=== PATIENT | female | born 1955 | race Caucasian/White ===

== ENCOUNTER 2021-04-01 13:08 | Outpatient (CLI) | payer MEDICARE, OTHER ==
--- NOTE | 2021-04-01 17:13 | DEXA Report ---
PROCEDURE: Dexa Spine and/or Hip INDICATIONS: OSTEOPOROSIS TECHNIQUE: Dual energy x-ray absorptiometry (DXA) was performed on a [employer] System. Regions measur ed are the AP Spine, femoral neck, and if needed forearm. COMPARISON: None. FINDINGS: Lumbar Spine: Omitted due to anatomy Left Femoral Neck: Bone Mineral Density 0.918 g/cm/cm, T score -0.7, normal Left forearm: Bone Mineral Density 0.373 g/cm/cm, T score -2.0, osteopenia (T score greater or equal to -1.0: NORMAL) (T score from -1.1 to -2.4: OSTEOPENIA) (T score less than or equal to -2.5 to: OSTEOPOROSIS) Impression: Osteopenia Patients with diagnosis of osteoporosis or osteopenia should have regular bone mineral density assess ment. For those eligible for Medicare, routine testing is allowed once every 2 years. Testing frequ ency can be increased for patients who have rapidly progressing disease or for those who are receivin g medical therapy to restore bone mass. Reviewed by: Harshil Ng MD on 04/01/2021 5:12 PM PDT Approved by: Harshil Ng MD on 04/01/2021 5:12 PM PDT Station ID: [id number]
== END 2021-04-01 13:09 | disposition home or self-care (01) ==
LOC: DI 13:08
PROVIDERS: ATTEND Internal Medicine
DX: Z00.00 Encounter for general adult medical examination without abnormal findings (principal); M85.88 Other specified disorders of bone density and structure, other site

== ENCOUNTER 2021-06-24 18:14 | Outpatient (CLI) | payer MEDICARE, OTHER ==
--- NOTE | 2021-06-25 08:15 | XRAY Report ---
PROCEDURE: Ribs w/PA Chest RT INDICATIONS: CONTUSION OF R FRONT WALL OF THORAX TECHNIQUE: 3 views of the right ribs were acquired, along with a single view chest. COMPARISON: None FINDINGS: Surgical changes and devices: Surgical hardware of lower thoracic spinal fusion. No evidence for acut e hardware complication. Bones and chest wall: Age-indeterminate posterior lateral right eighth rib fracture. No acute fractur es noted over the site of patient's pain marked by a skin BB seen in the lower, lateral aspect of the right chest. Levoscoliosis of the lumbar spine with associated spondylitic changes. No suspicious [place] lesions. Overlying soft tissues appear unremarkable. Lungs and pleura: No pleural effusions or pneumothorax. Lungs appear clear. Mediastinum: Mediastinal contours appear normal. Heart size is normal. IMPRESSION: 1. Age-indeterminate posterior lateral right eighth rib fracture. No acute rib fractures noted over t he area of pain in the lower right chest as indicated by the skin BB marker. 2. No acute cardiopulmonary abnormalities. 3. Levoscoliosis of the lumbar spine with associated spondylosis. 4. Status post spinal fusion of the thoracolumbar spine involving T11-L1. Reviewed by: Curtis Rodriguez MD on 06/25/2021 8:13 AM PDT Approved by: Curtis Rodriguez MD on 06/25/2021 8:13 AM PDT Station ID: [id number]
== END 2021-06-24 23:59 ==
LOC: DI.N 18:14
PROVIDERS: ATTEND Physician Assistant Medical
DX: S22.31XA Fracture of one rib, right side, initial encounter for closed fracture (principal); M47.816 Spondylosis without myelopathy or radiculopathy, lumbar region; Z98.1 Arthrodesis status

== ENCOUNTER 2021-12-17 10:58 | Day surgery (SDC) | payer MEDICARE, OTHER ==
[2021-12-17] MEDS ORDERED: LACTATED RINGERS 1,000 ML IV ONE ×2 (11:01→12:32)
[2021-12-17] MEDS ORDERED: PROPOFOL 500 MG/50 ML 500 MG/50 ML VIAL ONE (11:16)
--- NOTE | 2021-12-17 11:34 | ANESTHESIA ---
Pre-Anesthesia VS, & Labs - Diagnosis ulerative colitis - Procedure colonoscopy Vital Signs: Temp Pulse Resp BP Pulse Ox 37.3 C 90 18 145/82 H 100 12/17/21 11:01 12/17/21 11:01 12/17/21 11:01 12/17/21 11:01 12/17/21 11:01 Height: 5 ft Weight (kg): 56.7 kg Body Mass Index: 24.4 BMI Classification: Healthy weight - NPO Other (prep finished 8:30) - Is Patient ?: No Home Medications and Allergies Home Medications: Ambulatory Orders ARIPiprazole [Aripiprazole] 10 mg PO DAILY 12/09/21 Aspirin [Aspirin EC] 81 mg PO DAILY 12/09/21 Atorvastatin Calcium 40 mg PO DAILY 12/09/21 Calcium Carbonate/Vitamin D3 [Calcium 500 mg-Vit D3 600 Unit] 1 each PO DAILY 12/09/21 Cyclobenzaprine [Flexeril] 10 mg PO TID PRN 12/09/21 Loratadine [Claritin] 10 mg PO DAILY 12/09/21 Losartan Potassium [Cozaar] 100 mg PO DAILY 12/09/21 Sertraline [Zoloft] 200 mg PO DAILY 12/09/21 Tolterodine Tartrate [Detrol] 2 mg PO DAILY 12/09/21 Valacyclovir HCl [Valtrex] 500 mg PO DAILY 12/09/21 hydroCHLOROthiazide [Hydrodiuril] 25 mg PO DAILY 12/09/21 sulfaSALAzine [Azulfidine] 1,000 mg PO QID 12/09/21 ARIPiprazole [Aripiprazole] 10 mg PO DAILY 12/09/21 Aspirin [Aspirin EC] 81 mg PO DAILY 12/09/21 Atorvastatin Calcium 40 mg PO DAILY 12/09/21 Calcium Carbonate/Vitamin D3 [Calcium 500 mg-Vit D3 600 Unit] 1 each PO DAILY 12/09/21 Cyclobenzaprine [Flexeril] 10 mg PO TID PRN 12/09/21 Loratadine [Claritin] 10 mg PO DAILY 12/09/21 Losartan Potassium [Cozaar] 100 mg PO DAILY 12/09/21 Sertraline [Zoloft] 200 mg PO DAILY 12/09/21 Tolterodine Tartrate [Detrol] 2 mg PO DAILY 12/09/21 Valacyclovir HCl [Valtrex] 500 mg PO DAILY 12/09/21 hydroCHLOROthiazide [Hydrodiuril] 25 mg PO DAILY 12/09/21 sulfaSALAzine [Azulfidine] 1,000 mg PO QID 12/09/21 Allergies/Adverse Reactions: Allergies Allergy/AdvReac Type Severity Reaction Status Date / Time No Known Drug Allergies Allergy Verified 12/09/21 15:48 Anes History & Medical History - Anesthetic History Anesthesia Complications: reports: No previous complications - Medical History Cardiovascular: reports: Hypertension, High cholesterol Pulmonary: reports: Sleep apnea (no cpap) Gastrointestinal: reports: Ulcerative colitis Urinary: reports: Other Musculoskeletal: reports: Osteoarthritis, Chronic back pain Endocrine/Autoimmune: reports: None Skin: reports: Rosacea Smoking Status: Never smoker History of Cancer?: No - Surgical History General: reports: Colonoscopy Eyes Ears Nose Throat (EENT): reports: Tonsil/Adenoidectomy Orthopedic: reports: Hip replacement, Spine surgery, Other Exam General: Alert, Oriented x3 Dental: WNL Mouth Opening: Greater than 4 Fingerbreadths Neck Mobility: Normal Mallampati classification: III Respiratory: Lungs clear Cardiovascular: Regular rate Plan Anesthesia Type: Total IV Consent for Procedure(s) Verified and Reviewed: Yes Code Status: Attempt Resuscitation ASA classification: 2-Mild systemic disease Is this case an emergency?: No
[2021-12-17] MEDS ORDERED: LIDOCAINE 2%-EPI 1:100000 20 ML MDV SUBQ ONE (12:10)
[2021-12-17] MEDS ORDERED: BUPIVACAINE 0.25% PF 10 ML VIAL SUBQ ONE (12:10)
[2021-12-17] MEDS ORDERED: BUPIVACAINE 0.25% PF 10 ML VIAL ONE (12:11)
[2021-12-17] MEDS ORDERED: LIDOCAINE 2%-EPI 1:100000 20 ML MDV ONE (12:11)
--- NOTE | 2021-12-17 12:50 | OPERATIVE REPORT ---
Operative Report - General Procedure Date: 12/17/21 Planned Procedure: Incision and drainage of perianal abscess Pre-Op Diagnosis: Perianal abscess and ulcerative colitis Procedure Performed: Incision and drainage of perianal abscess Post Op Diagnosis: Perianal abscess and ulcerative colitis - Procedure Note Primary Surgeon: Conor Anesthesia Provider: Chika Pathology: Perianal skin Estimated Blood Loss (mL): 1 Findings: 2-1/2 cm subcutaneous cavity filled with purulent fluid. Complications: None apparent - Other Other Information/Narrative: This procedure was done following colonoscopy. Patient was already sedated and in left lateral decubitus position and a timeout had already been completed. The area of the abscess was prepped in the usual surgical fashion. It was infiltrated with 10 mL of local anesthetic. The central necrotic region was then opened using a 15 blade scalpel and a small piece of skin removed to allow complete and thorough drainage. The cavity was probed without any definite connection with the anal canal. The wound was checked for hemostasis and dressed with dry dressings. The patient tolerated procedure well and was taken to the postanesthesia care unit in good condition.
[2021-12-17 13:01] VITALS: BP 132/67
--- NOTE | 2021-12-17 13:16 | ANESTHESIA POST OP EVALUATION ---
Anesthesia Post Eval - Post Anesthesia Eval Vitals: Last Vital Signs Temp 37.2 C 12/17/21 12:55 Pulse 97 12/17/21 12:55 Resp 18 12/17/21 12:55 BP 132/67 H 12/17/21 12:55 Pulse Ox 99 12/17/21 12:55 CV Function Including HR & BP: Stable Pain Control: Satisfactory Nausea & Vomiting: Negative Mental Status: Baseline Respiratory Status: Airway Patent Hydration Status: Satisfactory Anesthesia Complications: None
== END 2021-12-17 10:59 | disposition home or self-care (01) ==
LOC: SDS 10:58
PROVIDERS: ATTEND Surgery
PROC: 0D9Q7ZZ Drainage of Anus, Via Natural or Artificial Opening (ICD-10-PCS; 2021-12-17)
PROC: 0DBP8ZX Excision of Rectum, Via Natural or Artificial Opening Endoscopic, Diagnostic (ICD-10-PCS; principal; 2021-12-17 12:00)
PROC: 0DBE8ZX Excision of Large Intestine, Via Natural or Artificial Opening Endoscopic, Diagnostic (ICD-10-PCS; 2021-12-17 12:00)
DX: K51.911 Ulcerative colitis, unspecified with rectal bleeding (principal); K61.0 Anal abscess; K64.4 Residual hemorrhoidal skin tags; K64.8 Other hemorrhoids; G47.30 Sleep apnea, unspecified
CPT/HCPCS: 45380; 46050; J7120

== ENCOUNTER → 2022-03-02 | Outpatient (CLI) | payer MEDICARE, OTHER | END | disposition short-term general hospital (02) | LOC: EMS 14:39 | DX: Z04.1 Encounter for examination and observation following transport accident (principal); M54.2 Cervicalgia; M54.6 Pain in thoracic spine; R20.2 Paresthesia of skin | CPT/HCPCS: A0425; A0429 ==

== ENCOUNTER 2022-11-24 13:33 | Outpatient (CLI) | payer MEDICARE, OTHER ==
--- NOTE | 2022-11-24 19:15 | SLEEP CARE CONSULTATION ---
Information from patient questionnaire entered by Alyssa Ashford. I have reviewed and concur with the information entered by Alyssa Ashford. This document represents the service I personally performed and the decisions made by me, Nuris Ryan MD, [facility]. History of Present Illness Service Date and Time: 11/24/2022 1333 Reason for Visit: New patient Chief Complaint: reports: Insomnia, Unrefreshed sleep, Snoring, Observed pauses in breathing, Fatigue, Frequent awakenings at night Date of Onset: SINCE I CAN REMEMBER Usual bedtime: [id number] Time it takes to fall asleep: 1-2 Snores at night: Yes Observed to quit breathing while asleep: Yes Number of times waking at night: 3-4 Reasons for waking at night: reports: Other (UNKNOWN) Recalls having dreams: Yes (NOON) Feels refreshed in the morning: No Morning headache: No Sleepy or fatigued during the day: Yes Ever fallen asleep while driving: Yes Takes day naps: No Dreams during day naps: No Prior sleep studies: Yes ([facility] SLE[facility] 15 YRS AGO) Additional HPI information: I have the pleasure of seeing Ms. Amaro today regarding the possibility of her having obstructive sleep apnea. As you know, she is a 67-year-old lady who complains of frequent awakenings during the night and persistent fatigue. She was diagnosed with severe obstructive sleep apnea-hypopnea in 2007 but mild in 2008 when she only slept on her side. She stopped using her CPAP not long afterward because she found a spider in the air hose. The patient tells me that she normally goes to bed around 2 3 am, and it takes her approximately 1 2 hours to fall asleep. She has been told that she snores loudly and irregularly at night. She has also been observed to stop breathing in her sleep. She can recall waking up on the average of 3 - 6 times during the night. In the morning she usually gets up out of the bed around noon. not feeling refreshed nor rested. During the day she complains of feeling sleepy and fatigued. Her score on Friendship Sleepiness Scale is 15 out of 24. - Parasomnia Symptoms Ever been unable to move upon waking from sleep: No Walks in sleep: No Talks in sleep: No Ever acted out dreams in sleep: No Ever felt weak in the knees when startled or emotional: No Bothered by creepy, crawly, restless sensations in legs: No Problems with memory or concentration: Yes Subjective Initial Friendship Sleepiness Scale score: 15 (11/24/22) Past Medical History Past Medical History: reports: Hypertension, Arthritis, Other (BACK SHOULDER PAIN) Social History The patient's occupation is a [employer]. Patient is Single and lives in . Have you smoked in the past 12 months: No Alcohol use: No Caffeine use: Yes Caffeine amount and frequency: 3 CANS DIET SODA Family History Family history of sleep disordered breathing: Yes Family Hx Sleep Apnea: Mother: Snoring Allergies and Home Medications Known drug allergies: No Drug allergies reviewed: Yes Home medication list reviewed: Yes Allergy and home medication list: Allergies No Known Drug Allergies Allergy (Verified 12/09/21 15:48) Review of Systems Weight gain over past 5 years: 30 Weight loss over past 5 years: 50 Cardiovascular: reports: high blood pressure Respiratory: denies: shortness of breath, wheeze, sputum production, chronic cough, other Gastrointestinal: reports: diarrhea, other (UCETIVE CLITIS) Urinary: reports: frequency, urgency Neurological: denies: headaches, seizure, head trauma, disorientation, speech dysfunction, gait or balance problems, fainting or unconsciousness, other Psychiatric: reports: depression Ear/Nose/Throat: reports: sinus problems, dry mouth/throat, tonsillectomy, wisdom teeth removed Endocrine: denies: thyroid disease, history of goiter, sluggishness, too hot or cold, excessive thirst, increased appetite, increased urination, unexplained wea kness, other Musculoskeletal: reports: joint pain, back pain Immunologic: reports: sneezing Physical Exam Vital signs obtained and entered by: ALYSSA Pulido MA Blood Pressure: 142/80 (LEFT ARM) Cuff size: regular Heart Rate: 76 O2 Saturation: 97 Height: 5 ft Weight: 164 lb 12.8 oz Body Mass Index: 32.1 BMI Classification: Obese Neck circumference: 13.75 HEENT: No craniofacial malformation Nostrils: patent to airflow Turbinates: normal Septum: midline Mouth and throat: narrow oropharynx Soft palate: long Hard palate: normal Uvula: normal Uvula visualization: 50% Mallampati Class II Tongue: normal in size Tonsils: small Chin and jaw: normal size and position Neck: normal w/o lymphadenopathy or thyromegaly Heart: regular rate and rhythm Lungs: clear bilaterally Extremities: no edema or clubbing Neurologic: intact Impression and Plan IMPRESSION: 1. Obstructive Sleep Apnea-Hypopnea Syndrome, as previously diagnosed. She quit using her CPAP a decade ago. She appears to be symptomatic for loud snore, frequent awakenings, unrefreshed sleep, and persistent fatigue, Narrow oropharynx and obesity are common predisposing factors for obstructive sleep apnea-hypopnea syndrome. I recommend proceeding to another polysomnography to confirm the diagnosis and to reassess severity. I informed the patient of what the sleep studies involve and after some discussion, she agreed to proceed. Plan: 1. Schedule polysomnography and return in 1 to 2 weeks after the study to discuss the results and initiate therapy as necessary. 2. Avoid long distance driving or when feeling sleepy. 3. Avoid alcohol, sedative and muscle relaxant around bedtime. 4. Attempt to lose weight. Plan: In-lab PSG Visit Type: In Office Time Spent with Patient (minutes): 15 Provider Statement: I spent 100% of the Face to Face Visit with the patient with greater than 50% spent counseling the patient and coordination of care.
[2022-11-24 19:16] VITALS: BP 142/80
== END 2022-11-24 13:34 | disposition home or self-care (01) ==
LOC: SC 13:33
PROVIDERS: ATTEND Internal Medicine Pulmonary Disease
DX: G47.33 Obstructive sleep apnea (adult) (pediatric) (principal); E66.9 Obesity, unspecified; Z68.32 Body mass index [BMI] 32.0-32.9, adult
CPT/HCPCS: 99202; G0463; 99212

== ENCOUNTER 2022-12-04 18:58 | Emergency (ER) | payer MEDICARE, OTHER ==
--- NOTE | 2022-12-04 19:37 | ED Physician Documentation ---
PD HPI DYSPNEA - Stated complaint Stated Complaint: WHEEZING,SOA - Chief complaint Chief Complaint: Resp - History obtained from History obtained from: Patient - Additional information Additional information: 67-year-old female with past medical history of hypertension and hyperlipidemia presents with about a week of cough, nasal congestion and wheezing. The patient has been seen in the clinic and has been given steroids, Tessalon Perles, Mucinex, And albuterol with only intermittent relief in her symptoms. She continues to have a frequent cough and frequent wheezing. She states she cannot take a deep breath because it triggers coughing. She states she cannot sleep at night because as soon as she lies flat she starts to cough. She has not noted any lower extremity edema however and denies any acute weight gain though has gained weight over the course of the last year or so due to diet changes. She has not had any chest pain, no fever or chills, no GI or symptoms. She has no history of lung disease to her knowledge, no history of COPD or asthma or tobacco use, No history of congestive heart failure. She does have a history of obstructive sleep apnea and had a recent sleep study. No known sick contacts. Review of Systems Constitutional: reports: Reviewed and negative Eyes: reports: Reviewed and negative Ears: reports: Reviewed and negative Nose: reports: Rhinorrhea / runny nose, Congestion. denies: Epistaxis, Sinus pressure / pain, Foreign Body Throat: reports: Reviewed and negative Cardiac: reports: Reviewed and negative Respiratory: reports: Dyspnea, Cough, Wheezing. denies: Hemoptysis GI: reports: Reviewed and negative : reports: Reviewed and negative Skin: reports: Reviewed and negative Musculoskeletal: reports: Reviewed and negative Neurologic: reports: Reviewed and negative Psychiatric: reports: Reviewed and negative Endocrine: reports: Reviewed and negative PD PAST MEDICAL HISTORY - Past Medical History Past Medical History: Yes Cardiovascular: Hypertension, High cholesterol Respiratory: Sleep apnea Endocrine/Autoimmune: None GI: Ulcerative colitis : Other HEENT: Chronic vision loss Psych: Depression Musculoskeletal: Osteoarthritis, Chronic back pain Derm: Rosacea - Past Surgical History Past Surgical History: Yes General: Colonoscopy Ortho: Hip replacement, Spine surgery, Other HEENT: Tonsil/Adenoidectomy - Present Medications Home Medications: Ambulatory Orders Medication Instructions Recorded Confirmed ARIPiprazole [Aripiprazole] 10 mg PO DAILY 12/09/21 11/24/22 Aspirin [Aspirin EC] 81 mg PO DAILY 12/09/21 11/24/22 Atorvastatin Calcium 40 mg PO DAILY 12/09/21 11/24/22 Calcium Carbonate/Vitamin D3 1 each PO DAILY 12/09/21 11/24/22 [Calcium 500 mg-Vit D3 600 Unit] Cyclobenzaprine [Flexeril] 10 mg PO TID PRN 12/09/21 11/24/22 Loratadine [Claritin] 10 mg PO DAILY 12/09/21 11/24/22 Losartan Potassium [Cozaar] 100 mg PO DAILY 12/09/21 11/24/22 Sertraline [Zoloft] 200 mg PO DAILY 12/09/21 11/24/22 Tolterodine Tartrate [Detrol] 2 mg PO DAILY 12/09/21 11/24/22 Valacyclovir HCl [Valtrex] 500 mg PO DAILY 12/09/21 11/24/22 hydroCHLOROthiazide [Hydrodiuril] 25 mg PO DAILY 12/09/21 11/24/22 sulfaSALAzine [Azulfidine] 1,000 mg PO QID 12/09/21 11/24/22 - Allergies Allergies/Adverse Reactions: Allergies Allergy/AdvReac Type Severity Reaction Status Date / Time No Known Drug Allergies Allergy Verified 12/04/22 19:04 - Social History Does the pt smoke?: No Smoking Status: Never smoker Does the pt drink ETOH?: Yes ETOH Use: None Does the pt have substance abuse?: No - Immunizations Immunizations are current?: Yes PD ED PE NORMAL - Vitals Vital signs reviewed: Yes - General General: Alert and oriented X 3, Well developed/nourished, Other (Mild respiratory distress, tachypneic but talking in full sentences.) - HEENT HEENT: Atraumatic, Pharynx benign - Neck Neck: Supple, no meningeal sign, No JVD - Cardiac Cardiac: RRR, No murmur, No gallop, No rub - Respiratory Respiratory: Other (Tachypneic with no retractions or accessory muscle use. Bilateral crackles, no current wheezes. Frequent dry cough) - Abdomen Abdomen: Normal bowel sounds, Soft, Non tender, Non distended - Derm Derm: Normal color, Warm and dry, No rash - Extremities Extremities: No deformity, No tenderness to palpate, Normal ROM s pain, No edema, No calf tenderness / cord - Neuro Neuro: Alert and oriented X 3 Eye Opening: Spontaneous Motor: Obeys Commands Verbal: Oriented GCS Score: 15 - Psych Psych: Normal mood, Normal affect Results - Vitals Vitals: Vital Signs - 24 hr 12/04/22 12/04/22 12/04/22 19:04 19:20 19:40 Temperature 36.5 C Heart Rate 100 100 98 Respiratory 16 19 18 Rate Blood Pressure 160/85 H 176/82 H O2 Saturation 94 96 12/04/22 12/04/22 20:09 22:00 Temperature Heart Rate 97 101 H Respiratory 37 H 34 H Rate Blood Pressure 157/79 H 162/80 H O2 Saturation 91 L 93 Oxygen O2 Source Room air - EKG (time done) No standard instances EKG releavant findings:: EKG personally interpreted by author of this note. Relevant findings are: Rate: Rate (enter#) (91) Rhythm: NSR [place]: Normal Intervals: Normal MA QRS: Normal Ischemia: Non specific changes Compare to prior EKG: Old EKG unavailable Computer interpretation: Agree with computer - Labs Labs: Laboratory Tests 12/04/22 12/04/22 12/04/22 19:27 19:45 19:45 WBC 9.9 RBC 4.55 Hgb 13.3 Hct 39.9 MCV 87.7 MCH 29.2 MCHC 33.3 RDW 14.3 Plt Count 264 MPV 9.2 Neut # (Auto) 7.5 H Lymph # (Auto) 1.3 L [place] # (Auto) 0.7 Eos # (Auto) 0.3 Baso # (Auto) 0.1 Absolute Nucleated RBC 0.00 Nucleated RBC % 0.0 Sodium 139 Potassium 2.9 L Chloride 101 Carbon Dioxide 29 Anion Gap 9.0 BUN 9 Creatinine 0.7 Estimated GFR (MDRD) 83 L Glucose 94 Calcium 9.0 Total Bilirubin 0.5 AST 55 H ALT 36 Alkaline Phosphatase 65 Troponin I High Sens B-Natriuretic Peptide Total Protein 7.3 Albumin 3.4 Globulin 3.9 Albumin/Globulin Ratio 0.9 L Lipase 34 Nasal Adenovirus (PCR) NOT DETECTED Nasal B. parapertussis DNA (PCR) NOT DETECTED Nasal Coronavir 229E PCR NOT DETECTED Nasal Coronavir HKU1 PCR NOT DETECTED Nasal Coronavir NL63 PCR NOT DETECTED Nasal Coronavir OC43 PCR NOT DETECTED Nasal Enterovir/Rhinovir PCR NOT DETECTED Nasal Influenza B PCR NOT DETECTED Nasal Influenza A PCR NOT DETECTED Nasal Parainfluen 1 PCR NOT DETECTED Nasal Parainfluen 2 PCR NOT DETECTED Nasal Parainfluen 3 PCR NOT DETECTED Nasal Parainfluen 4 PCR NOT DETECTED Nasal RSV (PCR) NOT DETECTED Nasal B.pertussis DNA PCR NOT DETECTED Nasal C.pneumoniae (PCR) NOT DETECTED Donta Human Metapneumo PCR NOT DETECTED Nasal M.pneumoniae (PCR) NOT DETECTED Nasal SARS-CoV-2 (PCR) NOT DETECTED 12/04/22 12/04/22 12/04/22 19:45 21:27 21:27 WBC RBC Hgb Hct MCV MCH MCHC RDW Plt Count MPV Neut # (Auto) Lymph # (Auto) [place] # (Auto) Eos # (Auto) Baso # (Auto) Absolute Nucleated RBC Nucleated RBC % Sodium Potassium Chloride Carbon Dioxide Anion Gap BUN Creatinine Estimated GFR (MDRD) Glucose Calcium Total Bilirubin AST ALT Alkaline Phosphatase Troponin I High Sens 15.9 H* 17.7 H* B-Natriuretic Peptide 42 Total Protein Albumin Globulin Albumin/Globulin Ratio Lipase Nasal Adenovirus (PCR) Nasal B. parapertussis DNA (PCR) Nasal Coronavir 229E PCR Nasal Coronavir HKU1 PCR Nasal Coronavir NL63 PCR Nasal Coronavir OC43 PCR Nasal Enterovir/Rhinovir PCR Nasal Influenza B PCR Nasal Influenza A PCR Nasal Parainfluen 1 PCR Nasal Parainfluen 2 PCR Nasal Parainfluen 3 PCR Nasal Parainfluen 4 PCR Nasal RSV (PCR) Nasal B.pertussis DNA PCR Nasal C.pneumoniae (PCR) Donta Human Metapneumo PCR Nasal M.pneumoniae (PCR) Nasal SARS-CoV-2 (PCR) - Rads (name of study) No standard instances Relevant Findings:: Final report received PD Medical Decision Making - ED course Complexity details: reviewed old records, reviewed results, re-evaluated patient, considered differential, d/w patient ED course: 67 yo F presented w/ a week of Frequent cough and shortness of breath as well as wheezing. Differentials considered included bronchitis, pneumonia, reactive airway, CHF exacerbation, or other viral respiratory infection. On arrival here, the patient was tachypneic and mildly wheezing with bibasilar crackles. She was given a DuoNeb as well as Solu-Medrol with some improvement in her symptoms. She continued to have crackles however And concern remained for possible fluid overload therefore she was given 40 mg of IV Lasix. We obtained a chest x-ray which showed Moderate diffuse lung disease which could be infectious, inflammatory or pulmonary edema. I have started the patient on 2gm of ceftriaxone and 500mg of azithromycin for possible CAP. Patient continued to be tachypneic with borderline oxygen saturation running 88 to 94% and was also mildly tachycardic therefore I also was concerned for possible PE. The patient did not have any risk factors but her Wells score was Moderate risk. CTA of the lungs is pending at this time. CBC reassuring, CMP only significant for potassium of 2.9. Initial troponin mildly elevated at 15, repeat troponin 17.9. Her EKG shows sinus rhythm with no acute ischemic changes. Her BNP is only 42. Patient does feel somewhat better after treatment rendered thus far therefore we will await the final CT report to determine course of treatment. Patient will be signed out to ED attending pending final CT report. Departure - Departure Clinical Impression: Bronchitis Condition: Good
[2022-12-04] MEDS: IPRATROPIUM/ALBUTEROL 3 ML NEB INH STA (19:41)
[2022-12-04 19:50] LABS: BASOPHILS # (AUTO) 0.1 10^3/uL (0.0-0.1); BASOPHILS % (AUTO) 0.7 %; EOSINOPHILS # (AUTO) 0.3 10^3/uL (0.0-0.7); EOSINOPHILS % (AUTO) 2.7 %; HCT - HEMATOCRIT 39.9 % (37.0-47.0); HGB - HEMOGLOBIN 13.3 g/dL (12.0-16.0); LYMPHOCYTES # (AUTO) 1.3 10^3/uL (1.5-3.5); LYMPHOCYTES % (AUTO) 13.5 %; MEAN CORPUSCULAR HEMOGLOBIN 29.2 pg (27.0-31.0); MEAN CORPUSCULAR HGB CONC 33.3 g/dL (32.0-36.0); MEAN CORPUSCULAR VOLUME 87.7 fL (81.0-99.0); MEAN PLATELET VOLUME 9.2 fL (7.9-10.8); MONOCYTES # (AUTO) 0.7 10^3/uL (0.0-1.0); MONOCYTES % (AUTO) 7.5 %; NEUTROPHILS # (AUTO) 7.5 10^3/uL (1.5-6.6); NEUTROPHILS % (AUTO) 75.3 %; PLT - PLATELET COUNT 264 10^3/uL (130-450); RED BLOOD COUNT 4.55 10^6/uL (4.20-5.40); RED CELL DISTRIBUTION WIDTH 14.3 % (12.0-15.0); WHITE BLOOD COUNT 9.9 x10^3/uL (4.8-10.8)
--- NOTE | 2022-12-04 19:59 | XRAY Report ---
PROCEDURE: Chest 1 View X-Ray INDICATIONS: chest pain TECHNIQUE: One view of the chest was acquired. COMPARISON: 06/24/2021 FINDINGS: Surgical changes and devices: Partially seen cervical fusion hardware. Lungs and pleura: Moderate diffuse lung disease. Mediastinum: Normal heart size. Bones and chest wall: No suspicious bony lesions. Overlying soft tissues appear unremarkable. IMPRESSION: Moderate diffuse lung disease, possibly infectious or inflammatory, versus edema. Consider future jessica ging surveillance to assess for resolution. Reviewed by: Bandar Martinez MD on 12/04/2022 7:57 PM PDT Approved by: Bandar Martinez MD on 12/04/2022 7:57 PM PDT Station ID: [id number]
[2022-12-04 20:03] LABS: ALBUMIN 3.4 g/dL (3.2-5.5); ALBUMIN/GLOBULIN RATIO 0.9 (1.0-2.2); BILIRUBIN,TOTAL 0.5 mg/dL (0.2-1.0); CREATININE 0.7 mg/dL (0.4-1.0); POTASSIUM 2.9 mmol/L (3.5-5.0); TOTAL PROTEIN 7.3 g/dL (6.7-8.2)
[2022-12-04] MEDS: POTASSIUM CHLORIDE 20 MEQ/15 ML UDC PO SCH (21:09)
[2022-12-04] MEDS: FUROSEMIDE 40 MG/4 ML VIAL IVP STA (21:09)
[2022-12-04 21:16] LABS: B. PARAPERTUSSIS- RESP PCR PAN NOT DETECTED; B. PERTUSSIS- RESP PCR PANEL NOT DETECTED; C. PNEUMONIAE- RESP PCR PANEL NOT DETECTED; CORONAVIRUS 229E-RESP PCR NOT DETECTED; CORONAVIRUS HKU1-RESP PCR NOT DETECTED; CORONAVIRUS NL63-RESP PCR NOT DETECTED; CORONAVIRUS OC43-RESP PCR NOT DETECTED; HUMAN METAPNEUMOVIRUS NOT DETECTED; INFLUENZA A- RESP PCR PANEL NOT DETECTED; INFLUENZA B - RESP PCR PANEL NOT DETECTED; M. PNEUMONIAE- RESP PCR PANEL NOT DETECTED; PARAINFLUENZA VIRUS 1 NOT DETECTED; PARAINFLUENZA VIRUS 2 NOT DETECTED; PARAINFLUENZA VIRUS 3 NOT DETECTED; PARAINFLUENZA VIRUS 4 NOT DETECTED; RHINOVIRUS/ENTEROVIRUS NOT DETECTED; RSV- RESP PCR PANEL NOT DETECTED; SARS-CoV-2 -RESP PCR PANEL NOT DETECTED
[2022-12-04] MEDS ORDERED: iohexoL-300 100 ML VIAL ONE (21:18)
[2022-12-04] MEDS ORDERED: cefTRIAXone 2 GM VIAL ONE (22:22)
[2022-12-04] MEDS: AZITHROMYCIN 250 MG TABLET PO STA (22:23)
[2022-12-04] MEDS: ACETAMINOPHEN 325 MG TABLET PO STA (22:23)
[2022-12-04] MEDS: cefTRIAXone 2 GM in SODIUM CHLORIDE 0.9% MINIBAG 100 ML IV STA (22:24)
--- NOTE | 2022-12-04 23:15 | CT Report ---
PROCEDURE: ANGIO CHEST W/WO INDICATIONS: diffuse lung disease vs edema on xray CONTRAST: Omni 300 80ml TECHNIQUE: After the administration of intravenous contrast, 2 mm axial images were acquired from the pulmonary apices to the posterior costophrenic angles during the arterial phase. In addition, 1 mm lung kernel and 5 mm soft tissue kernel reconstructions were performed. 3-dimensional coronal oblique maximum int ensity projection (MIP) reformats, 8 mm axial MIP, and 5 mm coronal and sagittal MPR reformats were t hen performed through the thorax. For radiation dose reduction, the following was used: automated exp osure control, adjustment of mA and/or kV according to patient size. COMPARISON: Chest x-ray 12/04/2022 FINDINGS: Image quality: There is motion artifact limiting evaluation. There is also streak artifact from patie nt's surgical hardware in the spine. Pulmonary arteries: Pulmonary arteries are normal in size, and demonstrate no intraluminal filling d efects to suggest central pulmonary embolism. Evaluation of distal subsegmental branches limited by m otion artifact. Lower Neck: No lymphadenopathy by size criteria. Thyroid: Visualized thyroid demonstrates no discrete nodules. Axillae: No lymphadenopathy by size criteria. Chest Wall: Unremarkable. Bones: There is a moderate anterior compression deformity within the mid thoracic spine at T7 of inde terminate acuity. No retropulsed fragments in spinal canal. Posterior fixation hardware partially vis ualized within the lower cervical spine as well as at T11-L1. Visualized osseous structures demonstra te no suspicious lesions. Lungs and Airways: No acute consolidation. There are bilateral heterogeneous indistinct geographic a reas of groundglass opacities. The trachea and central airways are patent. Pleura: No pneumothorax or pleural effusions. Heart: Heart size is normal. No pericardial effusion. Thoracic Vessels: The thoracic aorta is normal in size. Mediastinum and Kiersten: There are mildly enlarged bilateral hilar lymph nodes measuring up to approxima tely 1.2 cm in short axis. Esophagus: No wall thickening. There is a small hiatal hernia. Abdomen: Visualized upper abdomen demonstrates a nonobstructing stone within the partially visualize d right kidney measuring up to 0.9 cm. IMPRESSION: 1. No evidence of central pulmonary embolism. 2. Diffuse bilateral ground glass opacities are nonspecific but likely represent pulmonary edema. The differential includes inflammatory processes such as hypersensitivity pneumonitis or atypical pneumo henrique. 3. Mildly enlarged bilateral hilar lymph nodes are nonspecific but likely reactive. Reviewed by: Bk Sneed MD on 12/04/2022 11:13 PM PDT Approved by: Bk Sneed MD on 12/04/2022 11:13 PM PDT Station ID: [id number]
[2022-12-04] MEDS: iohexoL-300 100 ML VIAL IVP ONE (23:20)
--- NOTE | 2022-12-04 23:52 | ED Physician Documentation ---
ED Addendum - Addendum Addendum: Patient signed out to me by Lauren to follow-up on CT angio to evaluate for pulmonary embolism. CT is negative for pulmonary embolism but does have findings to suggest pneumonia.Patient has recently had URI symptoms which has not improved with albuterol inhaler and cough medication.When I evaluated the patient she is feeling better. I did ask if she had recently been on steroids The patient states that she has not been. On review of recently filled prescriptions I also do not see prednisone listed. Therefore we discussed treatment options which will include a short course of prednisone given her wheezing. I will also start her on a course of antibiotics for pneumonia and patient was started on Doxycycline. She was counseled regarding treatment plan and advised on need for close follow-up for PCP. She is aware of strict return precautions.She is not requiring supplemental oxygen and Heart rate has normalized at discharge. IMPRESSION: 1. No evidence of central pulmonary embolism. 2. Diffuse bilateral ground glass opacities are nonspecific but likely represent pulmonary edema. The differential includes inflammatory processes such as hypersensitivity pneumonitis or atypical pneumonia. 3. Mildly enlarged bilateral hilar lymph nodes are nonspecific but likely reactive. Departure - Departure Disposition: 01 Home, Self Care Clinical Impression: Bronchitis, Pneumonia Condition: Good Instructions: ED Bronchitis Asthmatic, ED Pneumonia Adult Prescriptions: Doxycycline Monohydrate [Avidoxy] 100 mg PO BID #10 tablet predniSONE [Deltasone] 60 mg PO DAILY 4 Days #12 tablet Comments: I am Starting you on an antibiotic for pneumonia. I am also going to start you on a course of steroids to help with the wheezing and your shortness of breath. Please continue with your inhaler as needed. I [place] [facility] [place] I would recommend close follow-up with your primary care doctor. Return to the emergency department with any worsening symptoms. Discharge Date/Time: 12/05/22 00:05
[2022-12-04] MEDS: predniSONE 20 MG TABLET PO STA (23:59)
[2022-12-05 00:05] VITALS: BP 128/62
== END 2022-12-05 00:05 | disposition home or self-care (01) ==
LOC: ED 18:58
DX: J40 Bronchitis, not specified as acute or chronic (principal); J18.9 Pneumonia, unspecified organism; E87.6 Hypokalemia; R00.0 Tachycardia, unspecified; R06.82 Tachypnea, not elsewhere classified; Z20.822 Contact with and (suspected) exposure to COVID-19
CPT/HCPCS: 36415; 71045; 71275; 80053; 83690; 83880; 84484; 85025; 87633; 93005; 94640; 96365; 96375; 99284; A9270; J7512; Q9967

== ENCOUNTER 2022-12-30 19:36 | Outpatient (CLI) | payer MEDICARE, OTHER | END 2022-12-30 19:37 | disposition home or self-care (01) | LOC: SC 19:36 | PROVIDERS: ATTEND Internal Medicine Pulmonary Disease | DX: G47.33 Obstructive sleep apnea (adult) (pediatric) (principal) | CPT/HCPCS: 95810 ==

== ENCOUNTER 2023-01-09 14:17 | Outpatient (CLI) | payer MEDICARE, OTHER ==
--- NOTE | 2023-01-09 15:28 | Sleep Patient Instructions ---
Sleep Center Visit Summary - Patient Visit Information Reason for Visit: Sleep Study follow up - Patient Instructions Instructions Attached: CPAP, CPAP Dc Additional Instructions: You will be started on CPAP therapy with pressure setting at 4-15 cmH2O. Please call the office to set up your next follow up once you obtain your new APAP machine and we will check compliance and response to therapy at that time. You may call the office with any concerns about pressure feeling too low or too much for adjustment if needed. You should contact DME for any questions or concerns about mask or equipment. - Clinic Information Contact: [facility] [address] [place] [address] [email or web address] T: [phone]
[2023-01-09 15:36] VITALS: BP 124/76
--- NOTE | 2023-01-09 15:36 | SLEEP CARE CONSULTATION ---
Information from patient questionnaire entered by Alyssa Ashford. I have reviewed and concur with the information entered by Alyssa Ashford. This document represents the service I personally performed and the decisions made by me, Rafaela Smith ARNP. History of Present Illness Service Date and Time: 01/09/2023 141 Initial [place] Sleepiness Scale score: 15 Current [place] Sleepiness Scale score: 13 (01/09/23) Additional HPI information: [facility] returns for follow up and results of the recently performed polysomnography. I explained the pathophysiology behind obstructive sleep apnea. We then spent quite a bit of time discussing different treatment options. For mild obstructive sleep apnea, surgery and oral appliance are alternatives to nasal CPAP therapy but in moderate or severe cases, nasal CPAP is the most effective and reliable treatment. Because apnea is primarily in supine position, then positional management therapy could be effective. Methods discussed such as positioning with pillows, using a T-shirt with tennis balls in the back or commercial products that have a pillow format on back to prevent supine sleep. I reviewed the impact of weight changes on sleep apnea and strongly recommended losing weight. After some discussion, the patient opted to go with the nasal CPAP therapy. Nasal autoCPAP set at 4-15 cmH20 will be ordered with rationale explained. A manual titration study will be ordered if unable to find optimal pressure with office adjustments. I explained how CPAP machine works and what to expect when using the machine. Using CPAP every night in order to get used to it was emphasized. Patient advised to put CPAP mask on before getting into bed so as not to fall asleep without CPAP. To assist acclimation to CPAP use, it could also be used for a short time during day while reading or watching TV. The patient was instructed to call the CPAP supplier to discuss any mechanical problem that may occur. If the mask given is uncomfortable or is difficult to keep on through the night even with adjustment, contact the CPAP supplier as many will replace with another mask style if notified before 30 days. If snoring or perceives is not getting enough air or too much air from the machine, notify this office. Patient does not drink alcohol. Patient was cautioned about risks of drowsy driving until sleepiness symptoms resolve. Sleep Study - Results Type of Sleep Study: Polysomnography (COMPLETED 12/30/22) Prior sleep studies: Yes ([facility] 15 YRS AGO) Polysomnography/Home Sleep Study results: IMPRESSION: The quality of the study is good. The patient had normal sleep efficiency. The sleep architecture was abnormal for sleep fragmentation and reduced amount of time spent in REM sleep. Respiratory monitoring showed severe obstructive sleep apnea-hypopnea (AHI = 45.3) associated with frequent arousals, oxyhemoglobin desaturation and moderate hypoxia (salud oxygen saturation of 78%). The respiratory events occurred predominantly during supine sleep (supine AHI = 63.1; non-supine = 29.43). Snore was light in intensity. There was no significant periodic leg movement of sleep. Cardiac rhythm was normal sinus rhythm without significant arrhythmia. No abnormal behavior (parasomnia) observed during the night. Allergies and Home Medications Known drug allergies: No Drug allergies reviewed: Yes Home medication list reviewed: Yes (Latanoprost eye drops) Allergy and home medication list: Allergies No Known Drug Allergies Allergy (Verified 01/09/23 14:13) Review of Systems Review of systems same as previous: No (glaucoma) Physical Exam Vital signs obtained and entered by: ALYSSA Pulido MA Blood Pressure: 124/76 (LEFT ARM) Cuff size: regular Heart Rate: 93 O2 Saturation: 99 Height: 5 ft Weight: 162 lb Body Mass Index: 31.6 BMI Classification: Obese Impression and Plan 1. Obstructive Sleep Apnea-Hypopnea Syndrome, severe, with lowest oxygen saturation of 78%. Obviously this is the cause of the patients symptoms of un refreshed sleep, and excessive daytime sleepiness. Positive pressure therapy could benefit hypertension. As mentioned above, the patient will be started on nasal autoCPAP therapy with pressure set at 4-15 cmH2O. A manual titration study will be completed if unable to find optimal treatment pressure with office adjustments. Compliance guidelines also reviewed. A copy of compliance guidelines will be given for reference at check out. Because the apnea is more severe supine, I instructed to avoid sleeping supine using pillow positioning until able to start CPAP use. 2. Hypoxemia, moderate, with a salud oxygen saturation of 78% and 38.7 minutes spent under 90%. Her baseline oxygen saturation was normal with an average oxygen saturation of 92%. * Nasal auto CPAP therapy, pressure at 4-15 cm H2O. * Attempt to lose weight. * Avoid alcohol consumption near bedtime. * Avoid supine sleep until using CPAP. * The patient is again cautioned about driving until sleepiness completely resolves. * Return one month after CPAP obtained. I will assess response to therapy and compliance at that time. Counseling Topics: Weight loss health impact Visit Type: In Office Time Spent with Patient (minutes): 22 Provider Statement: I spent 100% of the Face to Face Visit with the patient with greater than 50% spent counseling the patient and coordination of care.
== END 2023-01-09 14:18 | disposition home or self-care (01) ==
LOC: SC 14:17
PROVIDERS: ATTEND Nurse Practitioner Family
DX: G47.33 Obstructive sleep apnea (adult) (pediatric) (principal); E66.9 Obesity, unspecified; Z68.31 Body mass index [BMI] 31.0-31.9, adult
CPT/HCPCS: 99213; G0463; 99212

== ENCOUNTER 2023-02-26 15:32 | Outpatient (CLI) | payer MEDICARE, OTHER ==
--- NOTE | 2023-02-26 16:09 | SLEEP CARE CONSULTATION ---
Information from patient questionnaire entered by Heather Ashford. I have reviewed and concur with the information entered by Heather Ashford. This document represents the service I personally performed and the decisions made by me, Rafaela Smith ARNP. History of Present Illness Service Date and Time: 02/26/2023 1532 Previous diagnosis: Severe, Obstructive Sleep Apnea-Hypopnea Syndrome AHI: 45.3 Reason for follow up: first compliance Equipment type: CPAP (RESMED Airsense 11, s/u 01/2023) Equipment obtained from: Other ([facility], got initial supplies) Mask style: Full face Mask brand: [employer] (Lucas Full) Backup mask available: No (will keep old mask when replaced) Last cushion change: 1 month Prior sleep studies: Yes ([facility] 15 YRS AGO) Type of Sleep Study: Polysomnography (COMPLETED 12/30/22) HPI additional information: ESSENCE GILLIS was diagnosed to have severe, AHI 45.3, obstructive sleep apnea- hypopnea syndrome and returned today for CPAP therapy first compliance follow- up. Sleep Study - Results Type of Sleep Study: Polysomnography (COMPLETED 12/30/22) Prior sleep studies: Yes ([facility] 15 YRS AGO) CPAP Compliance Data - Data Reviewed with Patient Average duration of nightly device use: 7 HRS 42 MIN Compliance rate %: 100 (01/26/23-02/24/23; 30/30 days used) Current pressure setting (cmH2O): 10-20 (median 11.3, avg 13.7, max 15) Average residual AHI: 7.2 Central apnea: 1.7 Obstructive apnea: 3.2 Hypopnea: 1.5 Average large leak: 0.9 L/min Subjective Patient concerns: reports: dry mouth, nose, throat (has chronic dry mouth, not worse with CPAP). denies: aerophagia, mask discomfort, air blowing in eyes, mask leak noise, condensation in mask/hose, nasal congestion, epistaxis Observed to snore while using device: No Current pressure setting perceived as: too low On therapy, patient: reports: sleeping better, awakening more refreshed, being more awake and alert during the day, more rested overall. denies: drowsiness while driving Initial [place] Sleepiness Scale score: 15 Current [place] Sleepiness Scale score: 13 Allergies and Home Medications Known drug allergies: No Drug allergies reviewed: Yes Home medication list reviewed: Yes Allergy and home medication list: Allergies No Known Drug Allergies Allergy (Verified 02/25/23 16:32) Review of Systems Review of systems same as previous: No ("tweaked back" yesterday) Physical Exam Vital signs obtained and entered by: Rafaela Polanco NP Blood Pressure: 129/76 Cuff size: wrist (right) Heart Rate: 80 O2 Saturation: 96 Height: 5 ft Weight: 165 lb Body Mass Index: 32.2 BMI Classification: Obese Impression and Plan 1. Obstructive Sleep Apnea-Hypopnea Syndrome, severe, with good treatment compliance and fair apnea control with elevated residual AHI. On CPAP therapy, the patient has better sleep quality and is more rested overall. Patient has significant improvement of their sleep apnea although it is mildly ineffective at current settings. She is satisfied with current CPAP therapy and feels the Lucas full is comfortable. She does have chronic dry mouth but states it is not any worse with using the CPAP. Patient denies problems with nasal congestion, epistaxis, skin irritation or aerophagia. The patients pressure will be changed to autoCPAP 14-16 cmH20 for mild elevation of residual AHI. Patient advised to contact me if pressure change is uncomfortable so that it can be adjusted. Goals for apnea control discussed. Patient's apnea severity and rationale for treatment to reduce apnea, improve sleep quality and reduce cardiovascular and cerebrovascular events was reviewed. I also reviewed the benefit of consistent device use of CPAP for hypertension. 2. Obesity, unspecified. Currently patients BMI is 32.2. Obesity increases the risk of apnea, CPAP pressure requirements and overall health risks especially cardiovascular and diabetes. Thus patient is advised to lose weight. * Changeauto CPAP pressure to 14-16 cmH2O * Notify me if snoring with mask or feeling that the pressure is too much or too little * Attempt to lose weight * Call this office if any problems using CPAP * Return for follow up in 1-2 months, or sooner if concerns arise Counseling Topics: Weight loss health impact Visit Type: In Office Time Spent with Patient (minutes): 26 Provider Statement: I spent 100% of the Face to Face Visit with the patient with greater than 50% spent counseling the patient and coordination of care.
[2023-02-26 16:13] VITALS: BP 129/76
== END 2023-02-26 15:33 | disposition home or self-care (01) ==
LOC: SC 15:32
PROVIDERS: ATTEND Nurse Practitioner Family
DX: G47.33 Obstructive sleep apnea (adult) (pediatric) (principal); E66.9 Obesity, unspecified; Z68.32 Body mass index [BMI] 32.0-32.9, adult
CPT/HCPCS: 99213; G0463; 99212

== ENCOUNTER 2023-04-01 15:34 | Outpatient (CLI) | payer MEDICARE, OTHER ==
--- NOTE | 2023-04-01 15:57 | Sleep Patient Instructions ---
Sleep Center Visit Summary - Patient Visit Information Reason for Visit: One month followup for PAP therapy - Patient Instructions Additional Instructions: You were here for follow up of CPAP therapy. You will be continued on CPAP therapy with pressure at 18-20 cmH2O. Please let us know if the pressure change is uncomfortable and we can make further adjustments of the pressure. You should follow up with sleep care in 1-2 months. You may contact us sooner for any questions or concerns. - Clinic Information Contact: [facility] [address] [place] [address] [email or web address] T: [phone]
--- NOTE | 2023-04-01 16:07 | SLEEP CARE CONSULTATION ---
Information from patient questionnaire entered by Heather Ashford. I have reviewed and concur with the information entered by Heather Ashford. This document represents the service I personally performed and the decisions made by , Rafaela Smith ARNP. History of Present Illness Service Date and Time: 04/01/2023 1534 Previous diagnosis: Severe, Obstructive Sleep Apnea-Hypopnea Syndrome AHI: 45.3 Reason for follow up: one month (F/U) Equipment type: CPAP (RESMED Airsense 11, s/u 01/2023) Equipment obtained from: Other ([facility], getting supplies) Mask style: Full face Backup mask available: Yes (other mask) Last cushion change: 1 month Prior sleep studies: Yes ([facility] 15 YRS AGO) Type of Sleep Study: Polysomnography (COMPLETED 12/30/22) HPI additional information: ESSENCE GILLIS was diagnosed to have severe, AHI 45.3, obstructive sleep apnea- hypopnea syndrome and returned today for CPAP therapy one month follow-up. Sleep Study - Results Type of Sleep Study: Polysomnography (COMPLETED 12/30/22) Prior sleep studies: Yes ([facility] 15 YRS AGO) CPAP Compliance Data - Data Reviewed with Patient Average duration of nightly device use: 8 HRS 31 MIN Compliance rate %: 100 (02/27/23-03/28/23) Current pressure setting (cmH2O): 16-17 (median 15, avg 15.8, max 15.9) Average residual AHI: 8.9 Central apnea: 1 Obstructive apnea: 4.6 Hypopnea: 2.4 Average large leak: 2.5 L/min Subjective Patient concerns: reports: dry mouth, nose, throat (has chronic dry mouth). denies: aerophagia, mask discomfort, air blowing in eyes, mask leak noise, condensation in mask/hose, nasal congestion, epistaxis Observed to snore while using device: No Current pressure setting perceived as: comfortable On therapy, patient: reports: sleeping better, awakening more refreshed, being more awake and alert during the day, more rested overall. denies: drowsiness while driving Initial [place] Sleepiness Scale score: 15 Current [place] Sleepiness Scale score: 10 (04/01/23) Allergies and Home Medications Known drug allergies: No Drug allergies reviewed: Yes Home medication list reviewed: Yes (no changes) Allergy and home medication list: Allergies No Known Drug Allergies Allergy (Verified 03/31/23 13:58) Review of Systems Review of systems same as previous: Yes (no changes) Physical Exam Vital signs obtained and entered by: HEATHER Pulido MA Blood Pressure: 140/82 (LEFT ARM) Cuff size: regular Heart Rate: 92 O2 Saturation: 96 Height: 5 ft Weight: 170 lb 12.8 oz Body Mass Index: 33.3 BMI Classification: Obese Impression and Plan 1. Obstructive Sleep Apnea-Hypopnea Syndrome, severe, with good treatment compliance and fair apnea control with elevated residual AHI. On CPAP therapy, the patient has better sleep quality and is more rested overall. She states the pressure is comfortable and she would like to try the higher pressure to improve the AHI. The patients pressure will be changed to autoCPAP 18-20 cmH20 for elevation of residual AHI. Patient advised to contact me if pressure change is uncomfortable so that it can be adjusted. Goals for apnea control discussed. If we are unable to find optimal pressure to control apnea I will next order a titration study and she voiced agreement. Patient's apnea severity and rationale for treatment to reduce apnea, improve sleep quality and reduce cardiovascular and cerebrovascular events was reviewed. I also reviewed the benefit of consistent device use of CPAP for hypertension. 2. Obesity, unspecified. Currently patients BMI is 33.3. Obesity increases the risk of apnea, CPAP pressure requirements and overall health risks especially cardiovascular and diabetes. Thus patient is advised to lose weight. * Change auto CPAP pressure to 18-20 cmH2O * Notify me if snoring with mask or feeling that the pressure is too much or too little * Attempt to lose weight * Call this office if any problems using CPAP * Return for follow up in 1-2 months, or sooner if concerns arise Counseling Topics: Spare mask, Weight loss health impact Visit Type: In Office Time Spent with Patient (minutes): 24 Provider Statement: I spent 100% of the Face to Face Visit with the patient with greater than 50% spent counseling the patient and coordination of care.
[2023-04-01 16:13] VITALS: BP 140/82
== END 2023-04-01 15:35 | disposition home or self-care (01) ==
LOC: SC 15:34
PROVIDERS: ATTEND Nurse Practitioner Family
DX: G47.33 Obstructive sleep apnea (adult) (pediatric) (principal); E66.9 Obesity, unspecified; Z68.33 Body mass index [BMI] 33.0-33.9, adult
CPT/HCPCS: 99213; G0463; 99212

== ENCOUNTER 2023-05-19 11:30 | Outpatient (CLI) | payer MEDICARE, OTHER ==
--- NOTE | 2023-05-19 12:13 | SLEEP CARE CONSULTATION ---
Information from patient questionnaire entered by Heather Ashford. I have reviewed and concur with the information entered by Heather Ashford. This document represents the service I personally performed and the decisions made by me, Rafaela Smith ARNP. History of Present Illness Service Date and Time: 05/19/2023 1130 Previous diagnosis: Severe, Obstructive Sleep Apnea-Hypopnea Syndrome AHI: 45.3 Reason for follow up: one month (F/U) Equipment type: CPAP (RESMED Airsense 11, s/u 01/2023) Equipment obtained from: Other ([facility], getting supplies) Mask style: Full face Backup mask available: No (needs supplies) Last cushion change: has not changed it Prior sleep studies: Yes ([facility] SLEEP 15 YRS AGO) Type of Sleep Study: Polysomnography (COMPLETED 12/30/22) HPI additional information: ESSENCE GILLIS was diagnosed to have severe, AHI 45.3, obstructive sleep apnea- hypopnea syndrome and returned today for CPAP therapy one month follow-up. Sleep Study - Results Type of Sleep Study: Polysomnography (COMPLETED 12/30/22) Prior sleep studies: Yes ([facility] SLEEP 15 YRS AGO) CPAP Compliance Data - Data Reviewed with Patient Average duration of nightly device use: 7 HRS 56 MINS Compliance rate %: 93 (04/15/23-05/14/23; 30/30 days used) Current pressure setting (cmH2O): 18-20 Average residual AHI: 4.0 Central apnea: 1 Obstructive apnea: 1.5 Hypopnea: 1.3 Subjective Patient concerns: reports: dry mouth, nose, throat (wakes up several times to get a drink), other (redness on face). denies: aerophagia, mask discomfort, air blowing in eyes, mask leak noise, condensation in mask/hose, nasal congestion Observed to snore while using device: No Current pressure setting perceived as: comfortable On therapy, patient: reports: sleeping better, awakening more refreshed, being more awake and alert during the day, more rested overall. denies: drowsiness while driving Initial Durham Sleepiness Scale score: 15 Current Durham Sleepiness Scale score: 8 (05/19/23) Allergies and Home Medications Known drug allergies: No Drug allergies reviewed: Yes Home medication list reviewed: Yes (add naproxen) Allergy and home medication list: Allergies No Known Drug Allergies Allergy (Verified 05/18/23 09:27) Home Medications Medication Instructions Recorded Confirmed Last Taken Type ARIPiprazole [Aripiprazole] 10 mg PO DAILY 12/09/21 05/19/23 12/16/21 History Aspirin [Aspirin EC] 81 mg PO DAILY 12/09/21 05/19/23 12/15/21 History Atorvastatin Calcium 40 mg PO DAILY 12/09/21 05/19/23 12/16/21 History Calcium Carbonate/Vitamin D3 1 each PO DAILY 12/09/21 05/19/23 12/16/21 History [Calcium 500 mg-Vit D3 600 Unit] Cyclobenzaprine [Flexeril] 10 mg PO TID PRN 12/09/21 05/19/23 12/16/21 History Loratadine [Claritin] 10 mg PO DAILY 12/09/21 05/19/23 12/16/21 History Losartan Potassium [Cozaar] 100 mg PO DAILY 12/09/21 05/19/23 12/16/21 History Sertraline [Zoloft] 200 mg PO DAILY 12/09/21 05/19/23 12/16/21 History Tolterodine Tartrate [Detrol] 2 mg PO DAILY 12/09/21 05/19/23 12/16/21 History Valacyclovir HCl [Valtrex] 500 mg PO DAILY 12/09/21 05/19/23 12/16/21 History hydroCHLOROthiazide [Hydrodiuril] 25 mg PO DAILY 12/09/21 05/19/23 12/16/21 History sulfaSALAzine [Azulfidine] 1,000 mg PO QID 12/09/21 05/19/23 12/17/21 History Doxycycline Monohydrate [Avidoxy] 100 mg PO BID #10 tablet 12/04/22 05/19/23 Unknown Rx predniSONE [Deltasone] 60 mg PO DAILY 4 Days #12 tablet 12/04/22 05/19/23 Unknown Rx Naproxen See Rx Instructions .ROUTE .COMPLEX 05/19/23 05/19/23 Unknown History Review of Systems Review of systems same as previous: Yes (no changes) Physical Exam Vital signs obtained and entered by: HEATHER Pulido MA Blood Pressure: 142/80 (LEFT ARM) Cuff size: regular Heart Rate: 80 O2 Saturation: 96 Height: 5 ft Weight: 172 lb Body Mass Index: 33.5 BMI Classification: Obese Impression and Plan 1. Obstructive Sleep Apnea-Hypopnea Syndrome, severe, with good treatment compliance and good apnea control. On CPAP therapy, the patient has better sleep quality and is more rested overall. Her data shows good control of apnea. She is having problem with getting her supplies. She received a letter from [facility] stating that they need something from us showing her compliance. We will make sure that they receive the information that they need. She states that her mask can cause some redness on her face, she has sensitive skin. I recommended that she try a barrier cloth made for CPAP masks and gave her information. She also h as some dry mouth but states her mouth always comes open, even in the mask. I talked to her about a chinstrap to help keep mouth closed and reduce dryness from oral venting. She voiced understanding. Patient's apnea severity and rationale for treatment to reduce apnea, improve sleep quality and reduce cardiovascular and cerebrovascular events was reviewed. I also reviewed the benefit of consistent device use of CPAP for hypertension. 2. Obesity, unspecified. Currently patients BMI is 33.5. Obesity increases the risk of apnea, CPAP pressure requirements and overall health risks especially cardiovascular and diabetes. Thus patient is advised to lose weight. * Continue auto CPAP pressure at 18-20 cmH2O * Notify me if snoring with mask or feeling that the pressure is too much or too little * Attempt to lose weight * Call this office if any problems using CPAP * Return for follow up in 3 months, or sooner if concerns arise Counseling Topics: Spare mask, Weight loss health impact Visit Type: In Office Time Spent with Patient (minutes): 24 Provider Statement: I spent 100% of the Face to Face Visit with the patient with greater than 50% spent counseling the patient and coordination of care.
[2023-05-19 12:21] VITALS: BP 142/80; O2SAT 96
== END 2023-05-19 11:31 | disposition home or self-care (01) ==
LOC: SC 11:30
PROVIDERS: ATTEND Nurse Practitioner Family
DX: G47.33 Obstructive sleep apnea (adult) (pediatric) (principal); E66.9 Obesity, unspecified; Z68.33 Body mass index [BMI] 33.0-33.9, adult
CPT/HCPCS: 99213; G0463; 99212

== ENCOUNTER 2023-08-28 20:44 | Emergency (ER) | payer MEDICARE, OTHER ==
--- NOTE | 2023-08-28 21:21 | ED Physician Documentation ---
PD HPI FEVER - Stated complaint Stated Complaint: FEVER - Chief complaint Chief Complaint: Fever - History obtained from History obtained from: Patient - Additional information Additional information: HPI from patient. Patient was at work tonight when she experienced gradual onset generalized weakness, fatigue. 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 She then took a COVID test, result was negative. Took tylenol and subsequent temperature was 100.8. 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 Review of Systems Constitutional: reports: Fever, Chills, Myalgias, Fatigue, Sweats Nose: denies: Rhinorrhea / runny nose, Congestion Cardiac: reports: Reviewed and negative Respiratory: reports: Cough. denies: Dyspnea, Wheezing GI: denies: Abdominal Pain, Nausea, Vomiting, Diarrhea PD PAST MEDICAL HISTORY - Past Medical History Past Medical History: Yes Cardiovascular: Hypertension, High cholesterol Respiratory: Sleep apnea Endocrine/Autoimmune: None GI: Ulcerative colitis : Other HEENT: Chronic vision loss Psych: Depression Musculoskeletal: Osteoarthritis, Chronic back pain Derm: Rosacea - Past Surgical History Past Surgical History: Yes General: Colonoscopy Ortho: Hip replacement, Spine surgery, Other HEENT: Tonsil/Adenoidectomy - Present Medications Home Medications: Ambulatory Orders Medication Instructions Recorded Confirmed ARIPiprazole [Aripiprazole] 10 mg PO DAILY 12/09/21 05/30/23 Atorvastatin Calcium 40 mg PO DAILY 12/09/21 05/30/23 Calcium Carbonate/Vitamin D3 1 each PO DAILY 12/09/21 05/30/23 [Calcium 500 mg-Vit D3 600 Unit] Cyclobenzaprine [Flexeril] 10 mg PO TID PRN 12/09/21 05/30/23 Losartan Potassium [Cozaar] 100 mg PO DAILY 12/09/21 05/30/23 Tolterodine Tartrate [Detrol] 2 mg PO DAILY 12/09/21 05/30/23 Valacyclovir HCl [Valtrex] 500 mg PO DAILY 12/09/21 05/30/23 hydroCHLOROthiazide [Hydrodiuril] 25 mg PO DAILY 12/09/21 05/30/23 Naproxen See Rx Instructions .ROUTE .COMPLEX 05/19/23 05/30/23 Amox/Clav 875/125 [Augmentin 1 tablet PO Q12H 10 Days #20 tablet 05/30/23 05/30/23 875/125 Tab] Cetirizine [ZyrTEC] 10 mg PO DAILY 05/30/23 05/30/23 DULoxetine [Cymbalta] 30 mg PO DAILY 05/30/23 05/30/23 Oxycodone HCl/Acetaminophen 1 - 2 each PO Q6H PRN #14 tablet 05/30/23 05/30/23 [Percocet 5-325 mg Tablet] amLODIPine [Norvasc] 5 mg PO DAILY 05/30/23 05/30/23 Benzonatate [Tessalon] 100 mg PO TID PRN #20 cap 08/28/23 Codeine Phosphate/Guaifenesin 5 - 10 ml PO Q6HR PRN #100 ml 08/28/23 [Guaifen-Codeine 200-20 mg/10Ml] - Allergies Allergies/Adverse Reactions: Allergies Allergy/AdvReac Type Severity Reaction Status Date / Time No Known Drug Allergies Allergy Verified 08/28/23 20:53 - Social History Does the pt smoke?: No Smoking Status: Never smoker Does the pt drink ETOH?: Yes Does the pt have substance abuse?: No - Immunizations Immunizations are current?: Yes - POLST Patient has POLST: No PD ED PE NORMAL - Vitals Vital signs reviewed: Yes - General General: Alert and oriented X 3, No acute distress, Well developed/nourished - HEENT HEENT: Moist mucous membranes - Neck Neck: Supple, no meningeal sign - Cardiac Cardiac: RRR, No murmur - Respiratory Respiratory: No respiratory distress, Clear bilaterally - Abdomen Abdomen: Soft, Non tender Results - Vitals Vitals: Oxygen O2 Source Room air - Labs Labs: Laboratory Tests 08/28/23 20:58 Nasal Adenovirus (PCR) NOT DETECTED Nasal B. parapertussis DNA (PCR) NOT DETECTED Nasal Coronavir 229E PCR NOT DETECTED Nasal Coronavir HKU1 PCR NOT DETECTED Nasal Coronavir NL63 PCR NOT DETECTED Nasal Coronavir OC43 PCR NOT DETECTED Nasal Enterovir/Rhinovir PCR NOT DETECTED Nasal Influenza B PCR NOT DETECTED Nasal Influenza A PCR NOT DETECTED Nasal Parainfluen 1 PCR NOT DETECTED Nasal Parainfluen 2 PCR NOT DETECTED Nasal Parainfluen 3 PCR NOT DETECTED Nasal Parainfluen 4 PCR NOT DETECTED Nasal RSV (PCR) NOT DETECTED Nasal B.pertussis DNA PCR NOT DETECTED Nasal C.pneumoniae (PCR) NOT DETECTED Donta Human Metapneumo PCR NOT DETECTED Nasal M.pneumoniae (PCR) NOT DETECTED Nasal SARS-CoV-2 (PCR) NOT DETECTED PD Medical Decision Making - ED course Complexity details: reviewed results, considered differential, d/w patient ED course: Respiratory PCR panel negative for viruses tested on this panel including COVID, influenza, RSV. Lungs are CTA bilaterally and NAD, 99% pulse ox on room air. No indication for imaging such as CXR. H+P c/w viral URI. She is asking for something to suppress the cough. Given tessalon perles with rx for same, as well as take-home pack of vicodin (the hydrocodone should provide some cough suppressant activity) and rx for codeine/guaiafensis syrup. Return precautions reviewed. Departure - Departure Disposition: Home, Self Care Clinical Impression: URI (upper respiratory infection) Condition: Good Instructions: ED Fever Control, ED URI Viral Follow-Up: BALJEET HARLEY MD [Primary Care Provider] - Prescriptions: Codeine Phosphate/Guaifenesin [Guaifen-Codeine 200-20 mg/10Ml] 5 - 10 ml PO Q6HR PRN #100 ml PRN Reason: Cough Benzonatate [Tessalon] 100 mg PO TID PRN #20 cap PRN Reason: Cough Comments: The nasal swab was negative for the viruses tested on this test panel. The viruses tested for included COVID, influenza, RSV, and several other viruses. Despite this result, I still suspect a viral upper respiratory infection; this is based on the high fevers you are having earlier today without signs/symptoms to suggest a bacterial infection. You are being provided 4 tablets of Vicodin. This is to help with the cough (narcotic medications suppress cough rather well). You can take 1 tablet by mouth every 6 hours as needed for cough. I have electronically submitted a prescription for a codeine-containing cough syrup as well as Tessalon Perles (a non-narcotic cough medication, a dose of which were given in the emergency department) to the [facility] pharmacy in [place]. Forms: Activity restrictions Discharge Date/Time: 08/28/23 23:32
[2023-08-28 22:11] LABS: B. PARAPERTUSSIS- RESP PCR PAN NOT DETECTED; B. PERTUSSIS- RESP PCR PANEL NOT DETECTED; C. PNEUMONIAE- RESP PCR PANEL NOT DETECTED; CORONAVIRUS 229E-RESP PCR NOT DETECTED; CORONAVIRUS HKU1-RESP PCR NOT DETECTED; CORONAVIRUS NL63-RESP PCR NOT DETECTED; CORONAVIRUS OC43-RESP PCR NOT DETECTED; HUMAN METAPNEUMOVIRUS NOT DETECTED; INFLUENZA A- RESP PCR PANEL NOT DETECTED; INFLUENZA B - RESP PCR PANEL NOT DETECTED; M. PNEUMONIAE- RESP PCR PANEL NOT DETECTED; PARAINFLUENZA VIRUS 1 NOT DETECTED; PARAINFLUENZA VIRUS 2 NOT DETECTED; PARAINFLUENZA VIRUS 3 NOT DETECTED; PARAINFLUENZA VIRUS 4 NOT DETECTED; RHINOVIRUS/ENTEROVIRUS NOT DETECTED; RSV- RESP PCR PANEL NOT DETECTED; SARS-CoV-2 -RESP PCR PANEL NOT DETECTED
[2023-08-28] MEDS ORDERED: HYDROcod/ACET 5/325 Prepack 4 PO STA (23:07)
[2023-08-28] MEDS ORDERED: BENZONATATE 100 MG CAPSULE PO STA (23:08)
[2023-08-28 23:38] VITALS: BP 150/86; O2SAT 99
== END 2023-08-28 23:32 | disposition home or self-care (01) ==
LOC: ED 20:44
DX: J06.9 Acute upper respiratory infection, unspecified (principal)
CPT/HCPCS: 87633; 99283; 99284; A9270

== ENCOUNTER 2023-11-17 14:44 | Outpatient (CLI) | payer MEDICARE, OTHER ==
--- NOTE | 2023-11-17 15:16 | Sleep Patient Instructions ---
Sleep Center Visit Summary - Patient Visit Information Reason for Visit: 6-month follow-up - Patient Instructions Additional Instructions: You were here for follow up of CPAP therapy. You will be continued on CPAP therapy with pressure at 18/20 cmH2O. You should follow up with sleep care in 12 months. You may contact us sooner for any questions or concerns. - Clinic Information Contact: [facility] [address] [place] [address] [email or web address] T: [phone]
--- NOTE | 2023-11-17 15:20 | SLEEP CARE CONSULTATION ---
Information from patient questionnaire entered by Heather Ashford. I have reviewed and concur with the information entered by Heather Ashford. This document represents the service I personally performed and the decisions made by , Rafaela Smith ARNP. History of Present Illness Service Date and Time: 11/17/2023 1444 Previous diagnosis: Severe, Obstructive Sleep Apnea-Hypopnea Syndrome AHI: 45.3 Reason for follow up: six month (F/U) Equipment type: CPAP (RESMED Airsense 11, s/u 01/2023) Equipment obtained from: Other ([facility], getting supplies) Mask style: Full face Mask brand: [employer] (Lucas Full) Backup mask available: No (will keep old mask when replaced) Last cushion change: 1-2 months Prior sleep studies: Yes ([facility] SLEEP 15 YRS AGO) Type of Sleep Study: Polysomnography (COMPLETED 12/30/22) HPI additional information: ESSENCE GILLIS was diagnosed to have severe, AHI 45.3, obstructive sleep apnea- hypopnea syndrome and returned today for CPAP therapy six month follow-up. Sleep Study - Results Type of Sleep Study: Polysomnography (COMPLETED 12/30/22) Prior sleep studies: Yes ([facility] SLEEP 15 YRS AGO) CPAP Compliance Data - Data Reviewed with Patient Average duration of nightly device use: 8 HRS 10 MINS Compliance rate %: 97 (05/17/23-11/12/23; 180/180 days used) Current pressure setting (cmH2O): 18-20 Average residual AHI: 4.6 Central apnea: 1.4 Obstructive apnea: 1.7 Average large leak: 0.1 L/min Subjective Patient concerns: reports: mask discomfort (tightening mask to keep from leaking), condensation in mask/hose, dry mouth, nose, throat (dry mouth, has chronically). denies: aerophagia, air blowing in eyes, mask leak noise, nasal congestion, epistaxis Observed to snore while using device: No Current pressure setting perceived as: comfortable On therapy, patient: reports: other (wake up many times at night). denies: sleeping better, more rested overall, drowsiness while driving Initial Morris Sleepiness Scale score: 15 Current Morris Sleepiness Scale score: 14 (11/17/23) Allergies and Home Medications Known drug allergies: No Drug allergies reviewed: Yes Home medication list reviewed: Yes (amlodipine) Allergy and home medication list: Allergies No Known Drug Allergies Allergy (Verified 11/13/23 13:57) Review of Systems Review of systems same as previous: Yes (NO CHANGE) Physical Exam Vital signs obtained and entered by: HEATHER Pulido MA Blood Pressure: 152/80 (RIGHT ARM) Cuff size: regular Heart Rate: 84 O2 Saturation: 98 Height: 5 ft Weight: 172 lb (PER PT) Body Mass Index: 33.5 BMI Classification: Obese Impression and Plan 1. Obstructive Sleep Apnea-Hypopnea Syndrome, severe, with good treatment compliance and good apnea control. On CPAP therapy, the patient has better sleep quality and is more rested overall. Patient has significant improvement of their sleep apnea and is satisfied with current CPAP therapy. Patient complaining of getting lines on her face because of the mask. She says she has to tighten it because when she gets onto her side it will dislodging because mask leak noises. She feels like she is waking up more since using the CPAP but she does persevere and uses it compliantly. Patient asking about the Inspire implantable sleep apnea device. Patient informed that they would have to qualify for this type of therapy. A referral is needed for an ENT specialist who would evaluate if Inspire therapy is indeed right for them. Qualifications to be evaluated for Inspire therapy include a previous diagnosis of moderate to severe obstructive sleep apnea. They must also have tried, failed or have been unable to tolerate CPAP treatment. They should also have a BMI of 32 or less and do not have any other active implantable devices present (like a pacemaker). Patient will need to undergo a sleep endoscopy where they are put under light sedation and the airway is examined by an endoscope to determine the cause of their sleep apnea. If it is determined that Inspire therapy is right for them than they may proceed to implantation. She would like to think about it and I gave her some inf ormation on the Inspire implant. She will call if she would like a referral. Patient's apnea severity and rationale for treatment to reduce apnea, improve sleep quality and reduce cardiovascular and cerebrovascular events was reviewed. I also reviewed the benefit of consistent device use of CPAP for hypertension. 2. Obesity, unspecified. Currently patients BMI is 33.5. Obesity increases the risk of apnea, CPAP pressure requirements and overall health risks especially cardiovascular and diabetes. Thus patient is advised to continue to try to lose weight. * Continue auto CPAP pressure at 18-20 cmH2O * Notify me if snoring with mask or feeling that the pressure is too much or too little * Attempt to lose weight * Call this office if any problems using CPAP * Return for follow up in 12 months, or sooner if concerns arise Counseling Topics: Spare mask, Weight loss health impact Follow up with Sleep Care in: 1 year Visit Type: In Office Time Spent with Patient (minutes): 23 Provider Statement: I spent 100% of the Face to Face Visit with the patient with greater than 50% spent counseling the patient and coordination of care.
[2023-11-17 15:25] VITALS: BP 152/80; O2SAT 98
== END 2023-11-17 14:45 | disposition home or self-care (01) ==
LOC: SC 14:44
PROVIDERS: ATTEND Nurse Practitioner Family
DX: G47.33 Obstructive sleep apnea (adult) (pediatric) (principal); E66.9 Obesity, unspecified; Z68.33 Body mass index [BMI] 33.0-33.9, adult
CPT/HCPCS: 99213; G0463; 99212

== ENCOUNTER 2024-03-22 18:47 | Emergency (ER) | payer MEDICARE, OTHER ==
[2024-03-22 19:10] VITALS: O2SAT 98
--- NOTE | 2024-03-22 19:53 | ED Physician Documentation ---
PD HPI URI - Stated complaint Stated Complaint: SORE THROAT - Chief complaint Chief Complaint: Heent - Additional information Additional information: 68-year-old female with history of hypertension, hypercholesterolemia presents emergency department for concerns of COVID-19. 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 Patient says that she was worried about COVID because of her age and other age-related comorbidities and wanted to make sure that she did not need to be admitted to the hospital. She is says that her symptoms are very minimal but she is worried that she is just in the beginning. No nausea vomiting sore throat, no headache unsure if she has been having any fevers no chills. 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 : Other HEENT: Chronic vision loss Psych: Depression Musculoskeletal: Osteoarthritis, Chronic back pain Derm: Rosacea - Past Surgical History Past Surgical History: Yes General: Colonoscopy Ortho: Hip replacement, Spine surgery, Other HEENT: Tonsil/Adenoidectomy - Present Medications Home Medications: Ambulatory Orders Medication Instructions Recorded Confirmed Atorvastatin Calcium 40 mg PO DAILY 12/09/21 11/17/23 Losartan Potassium [Cozaar] 100 mg PO DAILY 12/09/21 11/17/23 Tolterodine Tartrate [Detrol] 2 mg PO DAILY 12/09/21 11/17/23 Valacyclovir HCl [Valtrex] 500 mg PO DAILY 12/09/21 11/17/23 hydroCHLOROthiazide [Hydrodiuril] 25 mg PO DAILY 12/09/21 11/17/23 DULoxetine [Cymbalta] 30 mg PO DAILY 05/30/23 11/17/23 amLODIPine [Norvasc] 5 mg PO DAILY 05/30/23 11/17/23 - Allergies Allergies/Adverse Reactions: Allergies Allergy/AdvReac Type Severity Reaction Status Date / Time No Known Drug Allergies Allergy Verified 03/22/24 19:02 - Social History Does the pt smoke?: No Smoking Status: Never smoker Does the pt drink ETOH?: Yes Does the pt have substance abuse?: No - Immunizations Immunizations are current?: Yes - POLST Patient has POLST: No PD ED PE NORMAL - Vitals Vital signs reviewed: Yes - General General: Alert and oriented X 3, No acute distress, Well developed/nourished - HEENT HEENT: Atraumatic, PERRL, Pharynx benign - Neck Neck: Supple, no meningeal sign - Cardiac Cardiac: RRR - Respiratory Respiratory: No respiratory distress - Abdomen Abdomen: Normal bowel sounds Results - Vitals Vitals: Oxygen O2 Source Room air PD Medical Decision Making - ED course ED course: 68-year-old female presents emergency department for concerns of testing positive for COVID. Patient says that because of her comorbidities and her age she is worried that she may need a prescription of Paxlovid. I informed the patient that with the current strain of COVID that is going around and that she has no symptoms of COVID currently aside from a minimal sore throat that Pa xlovid is not warranted and the current research does not show the Paxlovid is decreasing mortality morbidity related to COVID especially given that the current strain of COVID is not causing significant amount of mortality or hospitalization. Patient was reassured by this information she was offered Tylenol ibuprofen here in the ER she said that she has some at home she was offered dexamethasone for her sore throat which she agreed to. She still though follow-up with her primary care provider as needed and to follow her work guidelines in regards to how long she needs to stay home and isolate. All questions answered patient safe for discharge return precaution given. Departure - Departure Disposition: 01 Home, Self Care Clinical Impression: COVID-19 Instructions: ED Viral Syndrome, Flu and Cold: Nutrition, Prevention and Treatment Tips Comments: Thank you for trusting us with your care. You have tested positive for COVID at this point in time as we discussed COVID is treated with [id number] medications for symptom alleviation. We have given you 10 mg of oral dexamethasone here in the emergency department to help with your sore throat you can take Tylenol ibuprofen at home for any fevers chills body aches follow-up with your primary care provider as needed get plenty of rest eat a healthy well- balanced diet to help with recovery. Please come back to the ER if you are having any chest pain, shortness of breath, difficulty keeping fluids down or any other concerning emergent symptoms. Forms: PCP List Discharge Date/Time: 03/22/24 20:25
[2024-03-22] MEDS: DEXAMETHASONE 10 MG/ML VIAL PO STA (20:22)
[2024-03-22] MEDS: CHERRY SYRUP 10 ML UDC PO ONE (20:22)
[2024-03-22 20:48] VITALS: BP 121/74
== END 2024-03-22 20:25 | disposition home or self-care (01) ==
LOC: ED 18:47
DX: U07.1 COVID-19 (principal)
CPT/HCPCS: 99283; A9270

== ENCOUNTER 2024-03-29 15:30 | Outpatient (CLI) | payer MEDICARE, OTHER ==
[2024-03-29 21:22] LABS: BASOPHILS % (AUTO) 0.3 %; EOSINOPHILS # (AUTO) 0.1 10^3/uL (0.0-0.7); EOSINOPHILS % (AUTO) 0.9 %; HCT - HEMATOCRIT 42.7 % (37.0-47.0); HGB - HEMOGLOBIN 14.5 g/dL (12.0-16.0); LYMPHOCYTES # (AUTO) 1.7 10^3/uL (1.5-3.5); LYMPHOCYTES % (AUTO) 14.4 %; MEAN CORPUSCULAR HEMOGLOBIN 30.3 pg (27.0-31.0); MEAN CORPUSCULAR VOLUME 89.3 fL (81.0-99.0); MEAN PLATELET VOLUME 10.6 fL (7.9-10.8); MONOCYTES # (AUTO) 0.8 10^3/uL (0.0-1.0); MONOCYTES % (AUTO) 6.6 %; NEUTROPHILS % (AUTO) 77.5 %; PLT - PLATELET COUNT 294 10^3/uL (130-450); RED BLOOD COUNT 4.78 10^6/uL (4.20-5.40); RED CELL DISTRIBUTION WIDTH 13.2 % (12.0-15.0); WHITE BLOOD COUNT 11.6 x10^3/uL (4.8-10.8)
[2024-03-29 21:31] LABS: ALBUMIN 4.7 g/dL (3.2-5.5); ALBUMIN/GLOBULIN RATIO 1.4 (1.0-2.2); BILIRUBIN,TOTAL 0.9 mg/dL (0.2-1.0); CALCIUM 10.4 mg/dL (8.5-10.3); CREATININE 0.8 mg/dL (0.6-1.3); POTASSIUM 3.2 mmol/L (3.5-4.5)
[2024-03-29 21:33] LABS: BILIRUBIN,URINE NEGATIVE (NEGATIVE); CLARITY,URINE CLEAR (CLEAR); GLUCOSE, URINE (UA) NEGATIVE (NEGATIVE); KETONES,URINE (UA) NEGATIVE (NEGATIVE); LEUKOCYTE ESTERASE, URINE NEGATIVE (NEGATIVE); NITRITE,URINE NEGATIVE (NEGATIVE); OCCULT BLOOD,URINE TRACE-INTA (NEGATIVE); PROTEIN,URINE NEGATIVE (NEGATIVE); UROBILINOGEN,URINE 0.2 (NORMAL) E.U./dL (NORMAL)
[2024-03-29 21:49] LABS: RBC,URINE 0-5 /HPF (0-5); THYROID STIMULATING HORMONE 0.76 uIU/mL (0.34-5.60); WBC,URINE 0-3 /HPF (0-5)
[2024-03-29 21:50] LABS: BACTERIA,URINE Rare /HPF (None Seen); SQUAMOUS EPITHELIAL CELL,UR MOD Squamous (<= Few)
== END 2024-03-29 15:45 | disposition home or self-care (01) ==
LOC: LAB.N 15:30
PROVIDERS: ATTEND Specialist
DX: R11.0 Nausea (principal)
CPT/HCPCS: 36415; 80053; 81001; 82150; 83690; 84443; 85025; 87086

== ENCOUNTER 2024-03-30 17:03 | Emergency (ER) | payer MEDICARE, OTHER ==
[2024-03-30 17:20] VITALS: O2SAT 99
--- NOTE | 2024-03-30 17:48 | ED Physician Documentation ---
History of Present Illness - Stated complaint Stated Complaint: NAUSEA - Chief complaint Chief Complaint: Abd Pain - History obtained from History obtained from: Patient - Additonal information Additional information: She developed symptomatic COVID 8 days ago. Has been quite nauseous with poor appetite since. She does not have any abdominal pain, no chest pain or trouble breathing. Is just she really does not feel like eating. She went to the clinic yesterday had labs done which were notable for hypokalemia and hyponatremia at 131 and 3.1. She received Zofran which was modestly helpful. 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 : Other HEENT: Chronic vision loss Psych: Depression Musculoskeletal: Osteoarthritis, Chronic back pain Derm: Rosacea - Past Surgical History Past Surgical History: Yes General: Colonoscopy Ortho: Hip replacement, Spine surgery, Other HEENT: Tonsil/Adenoidectomy - Present Medications Home Medications: Ambulatory Orders Medication Instructions Recorded Confirmed Atorvastatin Calcium 40 mg PO DAILY 12/09/21 11/17/23 Losartan Potassium [Cozaar] 100 mg PO DAILY 12/09/21 11/17/23 Tolterodine Tartrate [Detrol] 2 mg PO DAILY 12/09/21 11/17/23 Valacyclovir HCl [Valtrex] 500 mg PO DAILY 12/09/21 11/17/23 hydroCHLOROthiazide [Hydrodiuril] 25 mg PO DAILY 12/09/21 11/17/23 DULoxetine [Cymbalta] 30 mg PO DAILY 05/30/23 11/17/23 amLODIPine [Norvasc] 5 mg PO DAILY 05/30/23 11/17/23 - Allergies Allergies/Adverse Reactions: Allergies Allergy/AdvReac Type Severity Reaction Status Date / Time No Known Drug Allergies Allergy Verified 03/30/24 17:13 - Social History Does the pt smoke?: No Smoking Status: Never smoker Does the pt drink ETOH?: Yes Does the pt have substance abuse?: No - Immunizations Immunizations are current?: Yes - POLST Patient has POLST: No PD ED PE NORMAL - Vitals Vital signs reviewed: Yes - General General: Alert and oriented X 3, No acute distress - Cardiac Cardiac: RRR, No murmur - Respiratory Respiratory: No respiratory distress, Clear bilaterally - Abdomen Abdomen: Other (Hyperactive bowel sounds, soft and nontender) - Neuro Neuro: Alert and oriented X 3, Normal speech Results - Vitals Vitals: Vital Signs - 24 hr 03/30/24 03/30/24 17:09 18:00 Temperature 36.3 C L Heart Rate 89 76 Respiratory 18 20 Rate Blood Pressure 118/63 91/73 O2 Saturation 99 99 Oxygen O2 Source Room air - Labs Labs: Laboratory Tests 03/30/24 03/30/24 17:55 17:55 Sodium 133 L Potassium 3.3 L Chloride 95 L Carbon Dioxide 27 Anion Gap 11.0 BUN 17 Creatinine 1.1 Estimated GFR (MDRD) 49 L Glucose 93 Calcium 10.3 Magnesium 1.5 L Total Bilirubin 0.9 AST 26 ALT 31 Alkaline Phosphatase 67 Total Protein 8.1 Albumin 4.7 Globulin 3.4 Albumin/Globulin Ratio 1.4 Nasal Influenza B PCR NOT DETECTED Nasal Influenza A PCR NOT DETECTED Nasal RSV (PCR) NOT DETECTED Nasal SARS-CoV-2 (PCR) NOT DETECTED PD Medical Decision Making - ED course ED course: She presents with dehydration after recent diagnosis of colon COVID. Poor appetite and nausea, she has had some improvement with Zofran as outpatient. Yesterday her sodium was 131 and today it has improved to 133. Yesterday her potassium was 3.1, and it today it has improved to 3.3. Her magnesium was low a nd she was supplemented with both potassium and magnesium. And she had 2 L of IV crystalloid and felt better. Departure - Departure Disposition: 01 Home, Self Care Clinical Impression: Dehydration Condition: Good Record reviewed to determine appropriate education?: Yes Instructions: ED Dehydration Comments: You are seen today for persistent nausea and dehydration after COVID. Your repeat COVID testing was negative. Your sodium and potassium are still bit low but better so than yesterday and you received 2 L of IV fluids and potassium and magnesium supplementation. Call your doctor to arrange a follow-up appointment, make the next available appointment. In the interim, return anytime if worse or if new symptoms develop. Forms: PCP List, Activity restrictions Discharge Date/Time: 03/30/24 19:58
[2024-03-30] MEDS: SODIUM CHLORIDE 0.9% 1,000 ML IV STA (18:06)
[2024-03-30] MEDS: LACTATED RINGERS 1,000 ML IV STA (18:08)
[2024-03-30] MEDS: METOCLOPRAMIDE 10 MG/2 ML VIAL IVP STA (18:09)
[2024-03-30 18:12] VITALS: BP 91/73
[2024-03-30 18:25] LABS: ALBUMIN 4.7 g/dL (3.2-5.5); ALBUMIN/GLOBULIN RATIO 1.4 (1.0-2.2); BILIRUBIN,TOTAL 0.9 mg/dL (0.2-1.0); CALCIUM 10.3 mg/dL (8.5-10.3); CREATININE 1.1 mg/dL (0.6-1.3); MAGNESIUM 1.5 mg/dL (1.7-2.3); POTASSIUM 3.3 mmol/L (3.5-4.5); TOTAL PROTEIN 8.1 g/dL (6.4-8.9)
[2024-03-30] MEDS: POTASSIUM BICARB 25 MEQ TABLET PO STA (18:51)
[2024-03-30] MEDS: MAGNESIUM SULFATE 2 GRAM 2 GM/50 ML BAG IV ONE (18:51)
[2024-03-30 19:12] LABS: INFLUENZA A- RESP PCR PANEL NOT DETECTED; INFLUENZA B - RESP PCR PANEL NOT DETECTED; RSV- RESP PCR PANEL NOT DETECTED; SARS-CoV-2 -RESP PCR PANEL NOT DETECTED
== END 2024-03-30 19:58 | disposition home or self-care (01) ==
LOC: ED 17:03
DX: E86.0 Dehydration (principal); E87.6 Hypokalemia; E83.42 Hypomagnesemia
CPT/HCPCS: 36415; 80053; 83735; 87637; 96361; 96365; 96375; 99284; A9270; J2765; J7120